=== PATIENT | male | born 1990 | race African-American/Black ===

== ENCOUNTER 2017-04-07 14:53 | Emergency (ER) | payer SELFPAY ==
[~2017-04-07] VITALS: Ht 157.5 cm; Wt 90.7 kg
[2017-04-07 16:12] LABS: BASO # 0.1 x10^3/uL (0.0-0.2); BASO % 1 % (0-3); EOS # 0.2 x10^3/uL (0.0-0.7); EOS % 1 % (0-3); HEMOGLOBIN 16.5 g/dL (13.0-17.5); LYMPH # 1.2 x10^3/uL (1.0-4.8); LYMPH % 8 % (24-48); MEAN CORPUSCULAR HEMOGLOBIN 28 pg (25-35); MEAN CORPUSCULAR HGB CONC 34 g/dL (31-37); MEAN CORPUSCULAR VOLUME 84 fL (79-100); MONO # 1.6 x10^3/uL (0.0-1.1); MONO % 10 % (0-9); NEUT # 12.7 x10^3uL (1.8-7.7); NEUT % 81 % (31-73); PLATELET COUNT 269 x10^3/uL (140-400); RED BLOOD COUNT 5.81 x10^6/uL (4.30-5.70); RED CELL DISTRIBUTION WIDTH 13.6 % (11.5-14.5); WHITE BLOOD COUNT 15.7 x10^3/uL (4.0-11.0)
[2017-04-07] MEDS ORDERED: PRED20TA PO (16:14)
--- NOTE | 2017-04-07 16:14 | PHYS DOC ---
Past History Past Medical History: No Pertinent History Past Surgical History: No Surgical History Alcohol Use: None Drug Use: Marijuana Adult General Chief Complaint Chief Complaint: SORE THROAT HPI HPI 87-year-old gentleman complaining of sore throat for 4 days. The pain as a throbbing burning sensation worse with swallowing. (nursing note states "distress") The patient does not appear to be in distress. Pain is nonradiating intermittent. No alleviating factors present. Review of systems was negative for chest pain abdominal pain nausea vomiting. All other review of systems is negative unless otherwise noted in history of present illness. ED course: 27-year-old gentleman presenting with sore throat. Patient is a low- grade temperature of 100F. Otherwise vital signs show mildly increased respiratory rate. When I evaluated the patient the patient's respiratory rate was 18. Possibly the patient had not been allowed to rest long enough to take vital signs. Physical exam shows anterior lymph chain adenopathy. Throat has erythema generally including the uvula without any exudate. No evidence of peritonsillar abscess present. The patient is able swallow secretions in the examination room. CT of the neck was performed and unremarkable. White blood cell count elevated. The patient was then discharged home in stable condition to follow up with their primary care physician over the next 2-3 days. They were to return if their symptoms worsened or if they were concerned for any reason. [id number] discharge instructions and return precautions were given. Patient's questions were answered to their satisfaction. Patient is comfortable plan. Review of Systems Review of Systems SEE ABOVE. Physical Exam Physical Exam Constitutional: Well developed, well nourished, no acute distress, non-toxic appearance. [] HENT: Normocephalic, atraumatic, bilateral external ears normal, . see above Eyes: PERRLA, EOMI, conjunctiva normal, no discharge. [] Neck: Normal range of motion, no tenderness, supple, no stridor. [] Cardiovascular:Heart rate regular rhythm, no murmur [] Lungs & Thorax: Bilateral breath sounds clear to auscultation [] Abdomen: Bowel sounds normal, soft, no tenderness, no masses, no pulsatile masses. [] Skin: Warm, dry, no erythema, no rash. [] Back: No tenderness, no CVA tenderness. [] Extremities: No tenderness, no cyanosis, no clubbing, ROM intact, no edema. [] Neurologic: Alert and oriented X 3, normal motor function, normal sensory function, no focal deficits noted. [] Psychologic: Affect normal, judgement normal, mood normal. [] Current Patient Data Vital Signs Vital Signs Date Time Temp Pulse Resp B/P (MAP) Pulse Ox O2 Delivery O2 Flow Rate FiO2 04/07/17 15:00 100.0 24 24 99 Room Air EKG EKG [] Radiology/Procedures Radiology/Procedures [] Course & Med Decision Making Course & Med Decision Making Pertinent Labs and Imaging studies reviewed. (See chart for details) [] Dragon Disclaimer Dragon Disclaimer This chart was dictated in whole or in part using Voice Recognition software in a busy, high-work load, and often noisy Emergency Department environment. It may contain unintended and wholly unrecognized errors or omissions. Departure Departure: Impression: Primary Impression: Sore throat Disposition: HOME, SELF-CARE Condition: STABLE Referrals: PCP,NO (PCP) JORDAN LOCKWOOD MD Patient Instructions: Sore Throat Additional Instructions: Thank you for allowing us to participate in your care today. Followup with your primary care physician in 3 days if your symptoms do not improve. Call your Primary Doctor tomorrow and inform them of your visit today. If you do not have a primary care provider you can ask for a list of our primary care providers. Return to the emergency department you have any new or concerning findings. This should be evaluated by the primary care physician and any necessary consulting services for continued management within a few days after discharge. Return to emergency room if you have any new or concerning symptoms including but not limited to fever, chills, nausea, vomiting, intractable pain, any new rashes, chest pain, shortness of air, uncontrolled bleeding, difficulty breathing, and/or vision loss. Scripts Prednisone (PREDNISONE) 20 Mg Tablet 2 TAB PO DAILY, #5 TAB Prov: SERENA ROSAS MD 04/07/17 SERENA ROSAS MD Apr 07, 2017 16:14
[2017-04-07 16:18] LABS: CALCIUM 9.2 mg/dL (8.5-10.1); CREATININE 1.2 mg/dL (0.7-1.3); GFR 89.3; POTASSIUM 3.6 mmol/L (3.5-5.1)
[2017-04-07] MEDS ORDERED: IOHEXOL 300 MG/ML 75 ML VIAL. IV ONE (16:45)
--- NOTE | 2017-04-07 17:08 | RAD ---
Indication neck pain. Fever. Elevated white count. Suspect abscess. Contrast imaging through the neck was performed. Approximately 75 cc of Omnipaque 300 was administered. Images were reformatted in the coronal and sagittal planes. The visualized brain appears unremarkable. There is some slight mucosal thickening involving the visualized bases of both maxillary sinuses. Mild sinusitis is not excluded. There is modest adenopathy in the neck which is probably reactive. No focal mass or definite abscess is seen. There is some suggested mild enlargement of the tonsils. Correlation with targeted physical exam advised. The visualized lung apices are clear. IMPRESSION: No discrete abscess seen. Mild maxillary sinusitis not excluded. Mild adenopathy in the neck likely reactive PQRS Compliance Statement: One or more of the following individualized dose reduction techniques were utilized for this examination: 1. Automated exposure control 2. Adjustment of the mA and/or kV according to patient size 3. Use of iterative reconstruction technique
[2017-04-07] MEDS ORDERED: DEXAMETHASONE SOD PHOS 10 MG/ML VIAL IV ONE (17:15)
[2017-04-07 17:35] VITALS: BP 130/78
[2017-04-07 17:45] LABS: % BANDS 2 % (0-9); % LYMPHS 13 % (24-48); % MONOS 7 % (0-10); % SEGS 78 % (35-66)
[2017-04-07 17:52] LABS: PLT ESTIMATE ADEQUATE (ADEQUATE)
== END 2017-04-07 17:57 | disposition home or self-care (01) ==
LOC: ER 14:53
DX: J02.9 Acute pharyngitis, unspecified (principal); R20.8 Other disturbances of skin sensation; F12.10 Cannabis abuse, uncomplicated
CPT/HCPCS: 36415; 70491; 80048; 85007; 85027; 87070; 87880; 96374; 99285; J1100; Q9967

== ENCOUNTER 2018-07-27 18:23 | Emergency (ER) | payer SELFPAY ==
[~2018-07-27] VITALS: Ht 160 cm; Wt 95.3 kg
[~2018-07-27 18:23] MED LIST: PRED20TA PO
[2018-07-27 18:35] VITALS: BP 108/84
[2018-07-27] MEDS ORDERED: IBUP800T19 PO (18:35)
[2018-07-27] MEDS ORDERED: PENI500T PO (18:35)
[2018-07-27] MEDS ORDERED: HYDR-971 PO (18:35)
[2018-07-27] MEDS ORDERED: METO10TA81 PO (18:35)
--- NOTE | 2018-07-27 18:39 | ED.ADGEN ---
Past History Past Medical History: No Pertinent History Past Surgical History: No Surgical History Alcohol Use: None Drug Use: Marijuana Adult General Chief Complaint Chief Complaint toothache HPI HPI 28 years old gentleman presented emergency department with toothache inguinal for long time got worse last 2 days described his pain as a sharp constant pain 10 out of 10 Review of Systems Review of Systems Constitutional: Denies fever or chills [] Eyes: Denies change in visual acuity, redness, or eye pain [] HENT: Denies nasal congestion or sore throat [] Respiratory: Denies cough or shortness of breath [] Cardiovascular: No additional information not addressed in HPI [] GI: Denies abdominal pain, nausea, vomiting, bloody stools or diarrhea [] : Denies dysuria or hematuria [] Musculoskeletal: Denies back pain or joint pain [] Integument: Denies rash or skin lesions [] Neurologic: Denies headache, focal weakness or sensory changes [] Endocrine: Denies polyuria or polydipsia [] All other systems were reviewed and found to be within normal limits, except as documented in this note. Allergies Allergies Allergies Coded Allergies Type Severity Reaction Last Updated Verified No Known Drug Allergies 04/07/17 No Physical Exam Physical Exam Constitutional: Well developed, well nourished, no acute distress, non-toxic appearance. [] HENT: Normocephalic, atraumatic, bilateral external ears normal, oropharynx moist, no oral exudates, nose normal. []Dental abscess noticed Eyes: PERRLA, EOMI, conjunctiva normal, no discharge. [] Neck: Normal range of motion, no tenderness, supple, no stridor. [] Cardiovascular:Heart rate regular rhythm, no murmur [] Lungs & Thorax: Bilateral breath sounds clear to auscultation [] Abdomen: Bowel sounds normal, soft, no tenderness, no masses, no pulsatile masses. [] Skin: Warm, dry, no erythema, no rash. [] Back: No tenderness, no CVA tenderness. [] Extremities: No tenderness, no cyanosis, no clubbing, ROM intact, no edema. [] Neurologic: Alert and oriented X 3, normal motor function, normal sensory function, no focal deficits noted. [] Psychologic: Affect normal, judgement normal, mood normal. [] EKG EKG [] Radiology/Procedures Radiology/Procedures [] Course & Med Decision Making Course & Med Decision Making Pertinent Labs and Imaging studies reviewed. (See chart for details) [] Final Impression Final Impression [] Problems: (1) Abscess, dental Dragon Disclaimer Dragon Disclaimer This electronic medical record was generated, in whole or in part, using a voice recognition dictation system. GARRISON FREEMAN MD Jul 27, 2018 18:39
== END 2018-07-27 18:47 | disposition home or self-care (01) ==
LOC: ER 18:23
DX: K04.7 Periapical abscess without sinus (principal)
CPT/HCPCS: 99283

== ENCOUNTER 2022-01-14 04:16 | Emergency (ER) | payer SELFPAY ==
[~2022-01-14] VITALS: Ht 160 cm; Wt 79.2 kg
[~2022-01-14 04:16] MED LIST changes: +HYDR-3165 PO; +IBUP800T19 PO; +METO10TA81 PO; +PENI500T PO
--- NOTE | 2022-01-14 04:32 | PHYS DOC ---
Past History Past Medical History: No Pertinent History Past Surgical History: No Surgical History Alcohol Use: None Drug Use: None Adult General HPI HPI Patient is a 31-year-old male who endorses a history of asthma who presents in police custody after being caught with illegal substances such as opiates and benzodiazepines and ran from the police. Police chased him for a while and thinks that he probably threw the drugs down but when they caught him he stated that he took them. Over the course of his transport he told different amounts to different people. Told police that he took several oxycodones, fentanyl and benzodiazepines. Told EMS that he only took opiates. Told the other EMS that it was Xanax. Denies any recent traumas, travels, illness, fevers, chest pain, abdominal pain, nausea, vomiting, diarrhea. Told EMS that he was having an asthma attack after running from the police but EMS stated that his respirations were normal and had no wheeze but gave him an albuterol treatment. Review of Systems Review of Systems Review of systems otherwise unremarkable except noted in HPI Allergies Allergies Allergies Coded Allergies Type Severity Reaction Last Updated Verified No Known Drug Allergies 07/27/18 No Physical Exam Physical Exam Constitutional: Well developed, well nourished, no acute distress, non-toxic appearance. [] HENT: Normocephalic, atraumatic, bilateral external ears normal, oropharynx moist, no oral exudates, nose normal. [] Eyes: conjunctiva normal, no discharge. [] Neck: Normal range of motion, no tenderness, supple, no stridor. [] Cardiovascular:Heart rate regular rhythm, no murmur [] Lungs & Thorax: Bilateral breath sounds clear to auscultation [] Abdomen: soft, no tenderness, no masses, no pulsatile masses. [] Skin: Warm, dry, no erythema, no rash. [] Extremities: No tenderness, no cyanosis, no clubbing, ROM intact, no edema. [] Neurologic: Alert and oriented X 3, normal motor function, normal sensory function, no focal deficits noted. [] Psychologic: Affect normal, judgement normal, mood normal. [] EKG EKG [] Radiology/Procedures Radiology/Procedures [] Heart Score C/O Chest Pain: No Risk Factors: Risk Factors: DM, Current or recent (<one month) smoker, HTN, HLP, family history of CAD, obesity. Risk Scores: Risk Factors: DM, Current or recent (<one month) smoker, HTN, HLP, family history of CAD, obesity. Course & Med Decision Making Course & Med Decision Making Patient is a 31-year-old male who presents in police custody after running from them endorsing an asthma attack and vague descriptions of taking various drugs while running from the police Vital signs not concerning. Physical exam noted above. EKG with a normal rate, normal rhythm, no STEMI. Chest x-ray not concerning. On arrival patient endorsing taking various medications and had some question about the authenticity of his sleepiness. If he indeed did take the things that he said there was some concern for a quick decompensation and airway management. Patient given dose of Narcan and flumazenil. Had no effect on patient sleepiness, or vital signs. Patient remained awake and alert at the same level with no increases or decreases in mentation. Able to take p.o. without issue. Discussed all findings with patient. Advised to stay away from any sort of medications that are not by prescription as they include significant risks of severe illness, disability and . Advised to follow-up when he can with his primary care physician. Gave return precautions to the ED. Patient grateful, verbalized understanding and agreed with plan of discharge. Dragon Disclaimer Dragon Disclaimer This electronic medical record was generated, in whole or in part, using a voice recognition dictation system. Departure Departure: Impression: Primary Impression: Ingestion of unknown drug Disposition: HOME / SELF CARE / HOMELESS Condition: STABLE Referrals: PCP,NO (PCP) ANTELMO URBINA MD Patient Instructions: Opiate Dependence, Sedative Ingestion Additional Instructions: Thank you for coming into the emergency department tonight and allowing us to take care of you. Please read the attached information carefully to go over things we discussed. Please do not take any medications that are not found [id number] with instructions or not given to you by your doctor. Doing so could cause significant health risks including severe illness, disability and . Please follow-up with the primary care physician when you can to update on your ED visit, establish care. Please come back with new or concerning symptoms as we discussed. THANG NELSON MD Jan 14, 2022 04:32
[2022-01-14] MEDS ORDERED: IV RINGERS SOLUTION,LACTATED 1,000 ML IV ONE (04:45)
[2022-01-14] MEDS ORDERED: FLUMAZENIL 0.5 MG/5 ML VIAL. IV ONE (05:00)
[2022-01-14] MEDS ORDERED: NALOXONE 2 MG/2 ML DISP.SYRIN. IV ONE (05:00)
--- NOTE | 2022-01-14 05:10 | EKG ---
[address] [address] Test Date: 2022-01-14 Test Time: 05:05:10 Pat Name: ROBBIN ERAZO Department: Room: Gender: M Roving Weight Gauger: LYN : 1990 Requested By: THANG NELSON Order Number: [id number] Reading MD: Deepak Pastor Measurements Intervals [place] Rate: 93 P: 47 VA: 156 QRS: 68 QRSD: 72 T: 31 QT: 326 QTc: 408 Interpretive Statements SINUS RHYTHM Electronically Signed On 01-17-2022 21:37:56 CDT by Deepak Pastor
--- NOTE | 2022-01-14 05:23 | RAD ---
EXAMINATION: XR CHEST 1V CLINICAL HISTORY: Chest pain, shortness of breath. EXAM DATE/TIME: 01/14/2022 4:52 AM COMPARISON: None FINDINGS: Lines, Tubes, and Devices: None. Cardiomediastinal Silhouette: Within normal limits. Lungs and Pleura: No evidence of focal airspace consolidation or pleural effusion. Pulmonary vasculat ure unremarkable. Bones and Soft Tissues: No acute osseous abnormality. IMPRESSION: No evidence of acute cardiopulmonary abnormality. Electronically signed by: Davian Moreno DO (01/14/2022 5:21 AM) [facility]
[2022-01-14 05:49] VITALS: BP 118/60
== END 2022-01-14 05:55 | disposition home or self-care (01) ==
LOC: ER 04:16
DX: T50.995A Adverse effect of other drugs, medicaments and biological substances, initial encounter (principal); J45.909 Unspecified asthma, uncomplicated; Y92.89 Other specified places as the place of occurrence of the external cause
CPT/HCPCS: 71045; 93005; 96361; 96374; 96375; 99284; J2310; J3490; J7120